=== PATIENT | female | born 1955 ===

== ENCOUNTER 2021-06-25 22:06 | Inpatient (IN) | payer OTHER ==
[~2021-06-25] VITALS: Ht 165.1 cm; Wt 106.1 kg
--- NOTE | 2021-06-25 22:35 | NUR ---
Pt brought back to room ED2B by market risk manager flores for poss sob. Pt placed on gurney and connected to bedside monitor. VSS, 123/65, 843bpm, 20rpm, 88% on 4L NC. Asisted pt to sit up and adviced to take deep breaths through her nose. A
--- NOTE | 2021-06-25 22:40 | NUR ---
EDMD at bedside to assess pt. Per EDMD placed pt on nonrebreather at high flow. pt sat improved to 93%. Pt is aaox3 with pale color and appears to have a facial twitch.
[2021-06-25] MEDS ORDERED: levoFLOXacin 750MG/D5W 150 ML IV ONE ×2 (22:45→23:35)
[2021-06-25] MEDS ORDERED: CEFTRIAXONE 1 G in IV DEXTROSE 5% 50 ML IV ONE (22:45)
--- NOTE | 2021-06-25 22:55 | NUR ---
EDMD ordered ABG and bibap. Started 20g IV on rt wrist without difficulty, pt given 40 of lasix IVP per EDMD and hung ordered abx and is currently running.
--- NOTE | 2021-06-25 23:05 | NUR ---
Pt placed on bibap and sat improved to 96%. Pt states feeling better. EKG performed and shown to EDMD result of NSR.
[2021-06-25] MEDS ORDERED: GABA-532 PO (23:10)
[2021-06-25] MEDS ORDERED: BUPR150T10 PO (23:10)
[2021-06-25] MEDS ORDERED: FERR325T28 PO (23:10)
[2021-06-25] MEDS ORDERED: ALBU8.5H8 IH (23:10)
[2021-06-25] MEDS ORDERED: LEVO100T10 PO (23:10)
[2021-06-25] MEDS ORDERED: SERT100T PO (23:10)
[2021-06-25] MEDS ORDERED: AMLO-212 PO (23:10)
[2021-06-25] MEDS ORDERED: PRAV20TA4 PO (23:10)
[2021-06-25] MEDS ORDERED: DOCU-141 PO (23:10)
[2021-06-25] MEDS ORDERED: OMEP20TA5 PO (23:10)
[2021-06-25] MEDS ORDERED: FUROSEMIDE 40 MG/4 ML VIAL IV ONE (23:15)
--- NOTE | 2021-06-25 23:20 | NUR ---
16f church catheter incerted without difficulty by maritza sup. Got immediate 15cc return of clear light yellow output. UA collected and sent by Uriel.
[2021-06-25 23:23] LABS: ABG BASE EXCESS -1.6 mmol/L; ABG HCO3 20.9 mmol/L; ABG PCO2 26.8 mmHg (35.0-45.0); ABG PH 7.509 (7.350-7.450); ABG PO2 129.3 mmHg (75.0-100.0); ABG SITE RIGHT RADIAL; ABG TOTAL HEMOGLOBIN 8.1 G/dL (12.0-16.0); COHb 0.4 % (0.5-1.5); MetHb 0.3 % (0.0-1.5); O2Hb 97.7 % (94.0-97.0)
[2021-06-25 23:25] LABS: MEAN CORPUSCULAR HEMOGLOBIN 32.2 uug (24.7-32.8); PLATELET COUNT (AUTO) 96 K/uL (179-408)
[2021-06-25] MEDS ORDERED: FUROSEMIDE 40 MG/4 ML VIAL ONE (23:31)
[2021-06-25] MEDS ORDERED: CEFTRIAXONE /D5W 50ML IVPB **ER PYXIS IV ONE (23:36)
[2021-06-25 23:45] LABS: *BILIRUBIN,URIN NEGATIVE (NEGATIVE); *BLOOD, URINE 3+ (NEGATIVE); *CLARITY,URINE CLOUDY (CLEAR); *COLOR,URINE YELLOW (YELLOW); *KETONES,URINE NEGATIVE (NEGATIVE); *UROBILINOGEN,URINE 0.2 E.U./dl (NORMAL); LEUKOCYTE ESTERASE ,URINE 3+ (NEGATIVE); NITRITE, URINE NEGATIVE (NEGATIVE); UGLUCOSE NEGATIVE (NEGATIVE)
[2021-06-26] VITALS (52 sets, daily range): BP systolic 66–152; BP diastolic 40–96
[2021-06-26 00:01] LABS: BACTERIA,URINE MANY /HPF (NONE SEEN); RBC,URINE 20-50 /HPF (0-3); SQUAMOUS EPITHELIAL CELL,UR FEW /HPF (NONE SEEN); WBC,URINE TNTC /HPF (0-3)
[2021-06-26 00:13] LABS: BILIRUBIN,DIRECT 0.5 mg/dL (0.0-0.2); BILIRUBIN,TOTAL 0.9 mg/dL (0.2-1.0); TOTAL PROTEIN, SERUM 7.5 g/dL (6.4-8.2)
[2021-06-26 00:19] LABS: CREATININE 13.4 mg/dL (0.6-1.3)
[2021-06-26] MEDS ORDERED: FUROSEMIDE 40 MG/4 ML VIAL IV ONE (00:45)
[2021-06-26] MEDS ORDERED: FUROSEMIDE 40 MG/4 ML VIAL ONE (00:48)
--- NOTE | 2021-06-26 01:13 | NUR ---
Called [facility] to page Dr. Benjamin.
--- NOTE | 2021-06-26 01:23 | NUR ---
Dr. Crawford on panel call with Dr. Benjamin.
--- NOTE | 2021-06-26 01:26 | NUR ---
Called [facility] nephrology to page Dr. Elam.
--- NOTE | 2021-06-26 01:27 | NUR ---
Dr. Crawford speaking with Dr. Elam of [facility].
--- NOTE | 2021-06-26 01:41 | NUR ---
Pt swabbed for covid using aseptic tech. specmen hand delivered to lab. [facility] called for admission due to respirator failure. Sourav will be admitting MD.
--- NOTE | 2021-06-26 02:31 | NUR ---
PATIENT PLACED ON BI/PAP WITH FULL LARGE MASK, APPROX. 23:45, WITH INITIAL SETTINGS. 15/5 , R16 , 50% ON BI/PAP. PT TENDS TO BREATH RAPID AT TIMES, IS AWAKE, AG WAS DONE ON NRB MASK PRIOR, PT STABLE, CHECK BI/PAP AT TIMES, ADJUST MASK. Lupe RUBIOP Addendum: 06/26/21 at 0233 by NASRIN BECKMAN RT Amended: Links added.
[2021-06-26] MEDS ORDERED: ONDANSETRON 4 MG/2 ML VIAL IV ONE (02:45)
[2021-06-26] MEDS ORDERED: HYDROCODONE/APAP 10-325 MG TABLET PO ONE (02:45)
[2021-06-26] MEDS ORDERED: HYDROCODONE/APAP 10-325 MG TABLET ONE (02:59)
[2021-06-26] MEDS ORDERED: ONDANSETRON 4 MG/2 ML VIAL ONE (02:59)
--- NOTE | 2021-06-26 02:59 | NUR ---
Inquired about getting a CCU room assigment for my pt bc VIOLETA wants her transported sudha. Spoke to CCU charge and was told there is no nurse to accept the pt and that most likely the pt will have to hold in ED till morning. Spoke to maritza vargas regarding VIOLETA's push to tranport pt upstairs. Maritza vargas said she is currently working on finding a room for my pt. She said a few pts will have to be moved to make room for my pt in the CCU. She said to give her another hour or so and she will have a room number for me.
[2021-06-26] MEDS ORDERED: MORPHINE SULFATE 2 MG/1 ML DISP.SYRIN IV PRN (03:45)
[2021-06-26] MEDS ORDERED: Z GUARD REMEDY PASTE 57 GM TUBE TOP PRN (03:45)
[2021-06-26] MEDS ORDERED: ONDANSETRON 4 MG/2 ML VIAL IV PRN (03:45)
[2021-06-26] MEDS ORDERED: MAGNESIUM HYDROXIDE 30 ML LIQUID UDC PO PRN (03:45)
--- NOTE | 2021-06-26 03:51 | NUR ---
Pt admitted to CCU 3, Room has to be first emptied by transfering pt to MD then terminal cleaning it, After room is all clean, then nurse said she will call me to transfe the pt.
--- NOTE | 2021-06-26 04:40 | NUR ---
Called CCU and thorough report given to CCU COSNTANTIN weathers using SBAR method. Respiratory called and bibap sent up to CCU 3 before hand. Pts chart turned over and pt transported to CCU 3 without difficulty. VSS, PE WNL, pt denies any pain, sob, dizziness, n/v. No s/sx of distress present.
--- NOTE | 2021-06-26 05:00 | NUR ---
Report received from CONSTANTIN Llamas. Patient transferred from ED and admitted to CCU-2 with a Diagnosis Acute respiratory failure via gurney accompanied by 1 staff nurse, without any incident. Patient was transferred to hospital bed via draw sheet method. A/Ox4. Able to make needs known with assistance. Left facial twitching noted. Placed on athletic monitor, SR, HR= 70bpm. NRB @15LPM, O2 sat 90%. RUC DL Deandre catheter. Body assessment done. Photos taken and placed on chart. Talbot catheter with minimal urine output. Will continue to monitor closely.
[2021-06-26] MEDS ORDERED: FERROUS SULFATE 325 MG TABEC PO SCH (05:15)
--- NOTE | 2021-06-26 05:15 | NUR ---
Placed on bipap machine with the settings of I:E 15/5, rate 16, FiO2 60% c/o RT Shan.
--- NOTE | 2021-06-26 06:00 | NUR ---
Called EPIC exchange to page doctor call or contact centre coach, Dr Benjamin x3 for HD. Awaiting for callback.
--- NOTE | 2021-06-26 06:20 | NUR ---
Called Nephro epic exchange and spoke with Dr. Elam, with regards to patient's HD. Per Dr. Ayers, ok to be stat dialysis. Notified Nursing paste mixing supervisor Shireen to call HD RN. Will endorsed to AM shift RN.
[2021-06-26] MEDS ORDERED: LEVOTHYROXINE SODIUM 100 MCG TABLET PO SCH (07:00)
--- NOTE | 2021-06-26 07:02 | NUR ---
Left patient awake, on Bipap machine as ordered, NAD, VSS. For HD today. Endorsed to next shift RN for continuity of care.
[2021-06-26] MEDS: PANTOPRAZOLE SODIUM 40 MG TABLET.DR PO SCH (07:12)
[2021-06-26] MEDS ORDERED: NOREPINEPHRINE BITARTRATE 8 MG in IV NORMAL SALINE 242 ML IV PRN (07:45)
[2021-06-26] MEDS: DOCUSATE SODIUM 100 MG CAPSULE PO SCH ×2 (08:40→16:05)
[2021-06-26] MEDS: SERTRALINE HCL 100 MG TABLET PO SCH (08:40)
[2021-06-26] MEDS: FERROUS SULFATE 325 MG TABEC PO SCH ×3 (08:40→16:05)
[2021-06-26] MEDS: DEXAMETHASONE SOD PHOSPHATE 4 MG INJ IV SCH ×2 (08:41→20:45)
[2021-06-26] MEDS ORDERED: DEXAMETHASONE SOD PHOSPHATE 4 MG INJ IV SCH (09:00)
[2021-06-26] MEDS ORDERED: AMLODIPINE 5 MG TABLET PO SCH (09:00)
[2021-06-26] MEDS ORDERED: ENOXAPARIN SODIUM 40 MG/0.4 ML DISP.SYRIN SQ SCH (09:00)
[2021-06-26] MEDS ORDERED: buPROPion SR 150 MG TABLET.SA PO SCH ×2 (09:00)
--- NOTE | 2021-06-26 09:30 | NUR ---
patient going into intermittent afib ordered EKG. Sent to Dr. Mendez, and received order for amioderone, also sent to Dr. Burgos for review.
--- NOTE | 2021-06-26 10:00 | NUR ---
[id number] orders for PICC Line insertion due to pressors.
[2021-06-26] MEDS ORDERED: AMIODARONE HCL IV 150 MG in IV DEXTROSE 5% 100 ML IV ONE (10:40)
[2021-06-26] MEDS: HEPARIN SODIUM,PORCINE 5,000 UNITS/ML VIAL SQ SCH ×2 (10:51→20:47)
[2021-06-26] MEDS: AMIODARONE HCL IV 450 MG in IV DEXTROSE 5% 250 ML IV PRN ×2 (10:53→23:03)
[2021-06-26] MEDS ORDERED: PROPOFOL 100 ML IV PRN (13:00)
--- NOTE | 2021-06-26 14:40 | NUR ---
Patient converted to Sinus rhythm.
[2021-06-26] MEDS: buPROPion XL 150 MG TAB.SR.24H PO SCH (16:43)
[2021-06-26] MEDS ORDERED: BUPR-53 PO (16:51)
--- NOTE | 2021-06-26 18:00 | NUR ---
Sister called and requested that she speak with the physician aeronautical project engineer. Epic number givenn to her. Sister is concerned that the patient may not want to be intubated and Full code. Social service consult placed.
[2021-06-26] MEDS ORDERED: LEVO125T8 PO (19:58)
[2021-06-26] MEDS ORDERED: ASPI81TA31 PO (20:03)
[2021-06-26] MEDS ORDERED: ONDA4TAB5 PO (20:06)
[2021-06-26] MEDS ORDERED: ACYC200C31 PO (20:17)
[2021-06-26] MEDS ORDERED: SODI650T PO (20:43)
[2021-06-26] MEDS ORDERED: SODI15OR6 PO (20:44)
[2021-06-26] MEDS: ACETAMINOPHEN 325 MG TABLET PO PRN (20:45)
[2021-06-26] MEDS: GABAPENTIN 300 MG CAPSULE PO SCH (20:45)
[2021-06-26] MEDS: ATORVASTATIN 10 MG TABLET PO SCH (20:45)
[2021-06-26] MEDS ORDERED: GABAPENTIN 100 MG CAPSULE PO SCH (21:00)
[2021-06-26] MEDS ORDERED: CEFTRIAXONE 1 G in IV DEXTROSE 5% 50 ML IV SCH (23:00)
[2021-06-26] MEDS ORDERED: CEFTRIAXONE 1 G VIAL IM SCH (23:00)
[2021-06-27] VITALS (83 sets, daily range): BP systolic 80–189; BP diastolic 27–168
[2021-06-27] MEDS: ACETAMINOPHEN 325 MG TABLET PO PRN (02:01)
[2021-06-27 05:18] LABS: HEMATOCRIT 26.7 % (31.2-41.9); MEAN CORPUSCULAR HEMOGLOBIN 32.1 uug (24.7-32.8); MEAN CORPUSCULAR VOLUME 93.6 fL (75.5-95.3); PLATELET COUNT (AUTO) 138 K/uL (179-408)
--- NOTE | 2021-06-27 06:45 | NUR ---
1900 Received patient awake, watching tv, follows command, facial twitching, shaking of UE. Denies pain at this time. NAD noted. On NRB mask @15LPM, O2 sat 97%. NSR on the monitor HR=78bpm. RW 20G SL and TIFFANIE PICC line with ongoing Amiodarone @0.5mg/min, Levophed @0.02mcg/kg/min. Talbot catheter with minimal urine UO noted. 1999 T=100.4, ice pack applied. Tylenol given as ordered. Will continue to monitor closely. 2099 T=102.4, cooling blanket applied. Will continue to monitor closely. 2129 Temperature trending down, T=101.5. Cool sponge bath applied. Will continue to monitor closely. 2199 Notified Nursing supercharge repair supervisor Monisha that cooling blanket is leaking and need replacement sudha. Per Monisha, nothing available at 3rd floor, sub acute and central suppluy. 0100 Cool sponge bath given several times. Linen changed. Will continue to monitor closely. 0150 Patient having SOB, labored breathing, RR=42, O2 sat=82%. Notified RT Fatoumata. 0200 Placed on bipap machine c/o RT Fatoumata. Will continue to monitor closely. 0300 HD started c/o Taye KILLIAN. Restarted Levo @0.1mcg/kg/min. 0330 Rechecked T=99.6 Cool sponge bath applied. Will continue to monitor closely. 0530 Placed on NRB mask @15LPM c/o RT Fatoumata. Per RT Fatoumata, ABG will be done on AM shift as patient kept on shaking. 0600 HD done, 2L out. VSS. Rechecked T=99.5. Cool sponge bath applied. Will continue to monitor closely. Lab called and spoke with Zeb for critical lab results. Called EPIC exchange and spoke with Precious Goddard NP, with new orders to DC heparin, lovenox 1mg/kg per pharmacy to dose Q12. Noted and carried out. 0700 Left patient awake, on NRB mask @15LPM with HFNC @40LPM, FiO2 100%, O2 sat=99%. ST on the monitor, XO=621. TIFFANIE PICC line with ongoing Amiodarone @0.5mg/min, Levophed @0.08mcg/kg/min BP=95/76. Talbot catheter with 50cc UO.Endorsed to next shift for continuity of care.
--- NOTE | 2021-06-27 06:47 | NUR ---
Seen and examined by Dr. Morrow, report given, with no new orders.
--- NOTE | 2021-06-27 07:10 | NUR ---
Received pt. AAOx4. Hemodynamically stable sbp maintained by levophed running at 0.08mcg/kg/min. Resp: on Dual setting vapoterm 40L 100% and NR 15L 100%. satuation of 82%. -88%. IV line patent. low grade fever. church to gravity. Skin with bruises. will continue to monitor.
[2021-06-27 07:50] LABS: BILIRUBIN,TOTAL 1.3 mg/dL (0.2-1.0); CREATININE 6.1 mg/dL (0.6-1.3); MAGNESIUM 1.7 mg/dL (1.8-2.4); PHOSPHOROUS 3.3 mg/dL (2.5-4.9); POTASSIUM 4.5 mmol/L (3.5-5.1); TOTAL PROTEIN, SERUM 8.1 g/dL (6.4-8.2)
--- NOTE | 2021-06-27 07:54 | NUR ---
Obstetrical Tech Dr. gage in the unit to see and examine pt. report given orders received and implemented.
[2021-06-27 07:55] LABS: ABG BASE EXCESS -4.2 mmol/L; ABG HCO3 17.9 mmol/L; ABG PCO2 23.6 mmHg (35.0-45.0); ABG PH 7.498 (7.350-7.450); ABG PO2 47.1 mmHg (75.0-100.0); ABG SITE LEFT RADIAL; ABG TOTAL HEMOGLOBIN 9.1 G/dL (12.0-16.0); COHb 0.3 % (0.5-1.5); MetHb 0.1 % (0.0-1.5); O2Hb 84.6 % (94.0-97.0); VENT MODE VAPOTHERM/ NRB
[2021-06-27 07:57] LABS: THYROID STIMULATING HORMONE 0.266 mIU/mL (0.358-3.740)
[2021-06-27] MEDS ORDERED: NOREPINEPHRINE BITARTRATE 32 MG in IV NORMAL SALINE 218 ML IV PRN (08:00)
[2021-06-27 08:06] LABS: HEPATITIS A AB, IgM Negative (Negative); HEPATITIS A AB, TOTAL Negative (Negative); HEPATITIS B SURFACE AG Negative (Negative); HEPATITIS Be ANTIGEN Negative (Negative)
[2021-06-27] MEDS: DOCUSATE SODIUM 100 MG CAPSULE PO SCH ×2 (08:27→17:00)
[2021-06-27] MEDS: ASPIRIN 81 MG TAB.CHEW PO SCH (08:27)
[2021-06-27] MEDS: DEXAMETHASONE SOD PHOSPHATE 4 MG INJ IV SCH ×2 (08:27→20:13)
[2021-06-27] MEDS: LEVOTHYROXINE SODIUM 125 MCG TABLET PO SCH (08:27)
[2021-06-27] MEDS: PANTOPRAZOLE SODIUM 40 MG TABLET.DR PO SCH (08:28)
[2021-06-27] MEDS: FERROUS SULFATE 325 MG TABEC PO SCH ×3 (08:29→17:00)
[2021-06-27] MEDS: SODIUM BICARBONATE 650 MG TABLET PO SCH ×2 (08:30→17:00)
[2021-06-27] MEDS: SERTRALINE HCL 100 MG TABLET PO SCH (08:30)
[2021-06-27] MEDS: buPROPion XL 150 MG TAB.SR.24H PO SCH (08:31)
[2021-06-27] MEDS ORDERED: HEPARIN SODIUM,PORCINE 5,000 UNITS/ML VIAL IV ONE (08:45)
[2021-06-27] MEDS: HEPARIN/D5W DRIP 500 ML IV PRN (08:45)
[2021-06-27] MEDS ORDERED: MAGNESIUM SULFATE/D5W 100 ML IV SCH (10:00)
--- NOTE | 2021-06-27 12:20 | NUR ---
Pt. with sustained desaturation down to the low 80's and tachypnea high 30's. RT at bedside and pt. placed on BIPA 20/10, Rate of 18 and 100% FIO2. saturation improved to 88%. Dr. Ly informed.
--- NOTE | 2021-06-27 12:42 | NUR ---
12-1300 meds not given pt. back on bipap and unable to take any po's.
[2021-06-27 14:36] LABS: ABG BASE EXCESS -5.1 mmol/L; ABG HCO3 18.7 mmol/L; ABG PCO2 29.5 mmHg (35.0-45.0); ABG PH 7.419 (7.350-7.450); ABG PO2 61.8 mmHg (75.0-100.0); ABG SITE LEFT RADIAL; ABG TOTAL HEMOGLOBIN 8.4 G/dL (12.0-16.0); COHb 0.1 % (0.5-1.5); MetHb 0.3 % (0.0-1.5); O2Hb 90.1 % (94.0-97.0); VENT MODE BIPAP
[2021-06-27] MEDS ORDERED: MORPHINE SULFATE 2 MG/1 ML DISP.SYRIN IV PRN (17:15)
--- NOTE | 2021-06-27 17:49 | NUR ---
Dr. Maza called to be updated on pt's current condition. also informed that due to desaturation and tachypnea pt. went back to A-fib during activities of daily leaving and attempts to readjust her face mask due to desaturation, orders received and implemented.
[2021-06-27] MEDS ORDERED: diphenhydrAMINE 50 MG/1 ML VIAL IV ONE (18:15)
[2021-06-27] MEDS: HYDROMORPHONE 1 MG/1 ML DISP.SYRIN IV PRN (18:20)
[2021-06-27] MEDS ORDERED: ACETAMINOPHEN 650 MG SUPP.RECT RC PRN (18:45)
[2021-06-27] MEDS ORDERED: AMIODARONE HCL IV 450 MG in IV DEXTROSE 5% 250 ML IV PRN (19:00)
--- NOTE | 2021-06-27 19:07 | NUR ---
Left pt. on BIPAP 20/10 rate of 18 and 100% FIO2. pt. with desaturation down to the 70's. hemodynamically remains on levophed and amiodarone drip for A-fib uncontrolled in the low 100's. Patient on heparin drip running at 1200 unit/hr. with next ptt in am on 06/28/2021. Talbot catheter with zero output. Picc to RUE patent. No skin breakdown no injury sustained. Will continue to monitor.
--- NOTE | 2021-06-27 19:30 | NUR ---
Report received. Patient admitted 06/25/2021 DX: VANDAPATRICK PNA, on isolation. AAO, on continuous BIPAP settings as follows: rate=18, PTT3=607%, I/E=20/10. O2 sats mid 80's. RR shallow, tachypneic, but patient appears calm. On Levophed, Amiodarone and Heparin drip via TIFFANIE PICC line. case monitor: Afib rate 100's-110's. Assessment done; see flow sheet for details. Addendum: 06/27/21 at 2330 by NESTOR THOMASON RN Amended: Links added.
[2021-06-27] MEDS: GABAPENTIN 300 MG CAPSULE PO SCH (20:13)
[2021-06-27] MEDS: ATORVASTATIN 10 MG TABLET PO SCH (20:13)
--- NOTE | 2021-06-27 20:35 | NUR ---
Patient converted to SR rate 80's. BPs stable with Levophed drip at 0.08 mcg/kg/min. Patient's sister Brionna called; updated of patient's condition.
[2021-06-27] MEDS: CEFTRIAXONE 2 G in IV DEXTROSE 5% 100 ML IV SCH (20:44)
[2021-06-27] MEDS ORDERED: levoFLOXacin 250MG /D5W 50 ML IV SCH ×2 (21:00→23:00)
--- NOTE | 2021-06-27 21:00 | NUR ---
Patient's friend Brianda called; updated of condition.
--- NOTE | 2021-06-27 23:30 | NUR ---
Levophed drip turned off; BPs stabilizing. Will continue to monitor closely. PM care done; skin care provided. RT Ham at bedside. Patient desaturates easily when BIPAP is removed for water intake and oral care. Patient advised; reassured. Addendum: 06/28/21 at 0119 by NESTOR THOMASON RN Amended: Links added. Addendum: 06/28/21 at 0119 by NESTOR THOMASON RN Amended: Links added. Addendum: 06/28/21 at 0120 by NESTOR THOMASON RN Amended: Links added. Addendum: 06/28/21 at 0120 by NESTOR THOMASON RN Amended: Links added. Addendum: 06/28/21 at 0120 by NESTOR THOMASON RN Amended: Links added. Addendum: 06/28/21 at 0120 by NESTOR THOMASON RN Amended: Links added. Addendum: 06/28/21 at 0120 by NESTOR THOMASON RN Amended: Links added. Addendum: 06/28/21 at 0121 by NESTOR THOMASON RN Amended: Links added. Addendum: 06/28/21 at 0121 by NESTOR THOMASON RN Amended: Links added. Addendum: 06/28/21 at 0121 by NESTOR THOMASON RN Amended: Links added. Addendum: 06/28/21 at 0122 by NESTOR THOMASON RN Amended: Links added. Addendum: 06/28/21 at 0122 by NESTOR THOMASON RN Amended: Links added.
[2021-06-28] VITALS (93 sets, daily range): BP systolic 78–169; BP diastolic 44–97
[2021-06-28] MEDS: IV NORMAL SALINE 250 ML IV PRN (01:10)
[2021-06-28] MEDS: ACETAMINOPHEN 325 MG TABLET PO PRN ×2 (02:21→19:36)
[2021-06-28] MEDS: HEPARIN/D5W DRIP 500 ML IV PRN (03:31)
--- NOTE | 2021-06-28 04:00 | NUR ---
Am care done; patient desaturates easily with turning. Monitored closely.
[2021-06-28 05:55] LABS: MAGNESIUM 2.2 mg/dL (1.8-2.4); PHOSPHOROUS 6.8 mg/dL (2.5-4.9); POTASSIUM 4.7 mmol/L (3.5-5.1)
[2021-06-28] MEDS: LEVOTHYROXINE SODIUM 125 MCG TABLET PO SCH (06:01)
[2021-06-28] MEDS: PANTOPRAZOLE SODIUM 40 MG TABLET.DR PO SCH (06:01)
[2021-06-28 06:39] LABS: CREATININE 9.1 mg/dL (0.6-1.3)
--- NOTE | 2021-06-28 06:46 | NUR ---
Seen by Dr. Morrow; aware of patient's condition. Spoke to patient re: dialysis today. Patient desaturates very easily with minimal care such as skin care, turning and oral care. BIPAP current settings: 20/10, VGH6=592% and rate=18. Still on Levophed drip at 0.03 mcg/kg/min, Amiodarone drip at 0.5 mg/min and Heparin drip at 1200units/H. This am PTT=50.3 seconds.
--- NOTE | 2021-06-28 07:00 | NUR ---
Receive pt. AAox4. Neuro-tayolr stable able to communicate despite having BIPAP mask on . Hemodynamically stable on Amiodarone drip running at 0.5mck/min. levophed running at 0.03mcg/kg/min. Patient Remains on BIPAP 20/10 Rate of 18, FIO2 100%. on Sinus rhythm. Picc line patent.
[2021-06-28] MEDS: ASPIRIN 81 MG TAB.CHEW PO SCH (08:33)
[2021-06-28] MEDS: DOCUSATE SODIUM 100 MG CAPSULE PO SCH ×2 (08:33→17:54)
[2021-06-28] MEDS: DEXAMETHASONE SOD PHOSPHATE 4 MG INJ IV SCH ×2 (08:36→20:47)
[2021-06-28] MEDS: buPROPion XL 150 MG TAB.SR.24H PO SCH (08:37)
[2021-06-28] MEDS: SODIUM BICARBONATE 650 MG TABLET PO SCH ×2 (08:37→17:55)
[2021-06-28] MEDS: SERTRALINE HCL 100 MG TABLET PO SCH (08:37)
[2021-06-28] MEDS: FERROUS SULFATE 325 MG TABEC PO SCH ×3 (08:40→17:54)
[2021-06-28 08:48] LABS: ABG BASE EXCESS -2.6 mmol/L; ABG HCO3 21.1 mmol/L; ABG PCO2 31.5 mmHg (35.0-45.0); ABG PH 7.443 (7.350-7.450); ABG SITE RIGHT BRACHIAL; ABG TOTAL HEMOGLOBIN 8.2 G/dL (12.0-16.0); COHb 0.3 % (0.5-1.5); MetHb 0.2 % (0.0-1.5); O2Hb 91.2 % (94.0-97.0); VENT MODE BIPAP
[2021-06-28 09:47] LABS: HEMATOCRIT 21.6 % (31.2-41.9); PLATELET COUNT (AUTO) 128 K/uL (179-408)
--- NOTE | 2021-06-28 11:15 | NUR ---
Clinical Social Work Note SW consult was requested to help patients sister with discussing code status. Patient is a 65 female and SW did not meet with patient. ALEXANDER spoke with patients sister Yaquelin Fuentes ([phone]) who stated that she wanted to discuss her sisters code status with patients doctor. Patients sister stated that she wanted more information about her sisters condition in order to make a decision about code status. ALEXANDER spoke with RN, Eloisa, to inform her about patients sisters request and asked if she can advise MD to call patients sister.
--- NOTE | 2021-06-28 11:29 | NUR ---
Patient seen by title attorney Dr. Ly report given see order hx. well aware that pt. is not stable to be taken down for CTA. and agreeable to have procedure done when pt. stable enough.
--- NOTE | 2021-06-28 11:36 | NUR ---
A call from ALEXANDER George and Mala was advice to notify attending and give him Ms. Rocha cell phone number for update and discuss code status. . notified,.
--- NOTE | 2021-06-28 11:40 | NUR ---
Patient seen by pot sander Dr. Burgos and orders to dcd amiodarone as pt. will take po amiodarone. and also orders to dcd the heparin drip.
--- NOTE | 2021-06-28 12:00 | NUR ---
Attending Dr. Gray Mathias in to see and examine pt. report given.
--- NOTE | 2021-06-28 15:15 | NUR ---
Pt. started on HD tolerating at this time.
[2021-06-28 16:38] LABS: LYMPHOCYTES % (MANUAL) 20 % (20-40); MONOCYTES % (MANUAL) 10 % (2-10); NEUTROPHILS % (MANUAL) 70 % (42-75)
--- NOTE | 2021-06-28 18:30 | NUR ---
Hemodialysis stopped as ordered by Dr. Morrow to crna. due to increasing heart rate A-fib in the 130's max and at this time been sustained. report of a total of 1.1 liter removed.
--- NOTE | 2021-06-28 18:45 | NUR ---
Lead Mechanic Dr. Burgos notified of events and that pt. has sustained and back in the A-fib uncontrolled mode. Awaiting call back.
[2021-06-28] MEDS ORDERED: AMIODARONE HCL IV 450 MG in IV DEXTROSE 5% 250 ML IV PRN (19:30)
--- NOTE | 2021-06-28 19:30 | NUR ---
Received patient tachycardic, tachypneic, mildly agitated. Admitted for COVID PNA 06/25/2021. RT at bedside. On BIPAP, settings: rate=18, YMC5=017% I/E= 20/10. Patient advised and reassured appropriately. Iceh=912.1 axillary. Medicated with Tylenol po and Dilaudid IV. Cooling measures initiated. Turned and repositioned for comfort. HOB elevated above 30 degrees. Addendum: 06/29/21 at 0100 by NESTOR THOMASON RN Amended: Links added. Addendum: 06/29/21 at 0103 by NESTOR THOMASON RN Amended: Links added. Addendum: 06/29/21 at 0106 by NESTOR THOMASON RN Amended: Links added. Addendum: 06/29/21 at 0107 by NESTOR THOMASON RN Amended: Links added. Addendum: 06/29/21 at 0107 by NESTOR THOMASON RN Amended: Links added. Addendum: 06/29/21 at 0107 by NESTOR THOMASON RN Amended: Links added. Addendum: 06/29/21 at 0107 by NESTOR THOMASON RN Amended: Links added. Addendum: 06/29/21 at 0109 by NESTOR THOMASON RN Amended: Links added. Addendum: 06/29/21 at 0109 by NESTOR THOMASON RN Amended: Links added. Addendum: 06/29/21 at 0109 by NESTOR THOMASON RN Amended: Links added. Addendum: 06/29/21 at 0109 by NESTOR THOMASON RN Amended: Links added. Addendum: 06/29/21 at 0109 by NESTOR THOMASON RN Amended: Links added. Addendum: 06/29/21 at 0109 by NESTOR THOMASON RN Amended: Links added. Addendum: 06/29/21 at 0110 by NESTOR THOMASON RN Amended: Links added. Addendum: 06/29/21 at 0110 by NESTOR THOMASON RN Amended: Links added. Addendum: 06/29/21 at 0110 by NESTOR THOMASON RN Amended: Links added. Addendum: 06/29/21 at 0110 by NESTOR THOMASON RN Amended: Links added. Addendum: 06/29/21 at 0110 by NESTOR THOMASON RN Amended: Links added. Addendum: 06/29/21 at 0111 by NESTOR THOMASON RN Amended: Links added.
[2021-06-28] MEDS: HYDROMORPHONE 1 MG/1 ML DISP.SYRIN IV PRN (19:35)
--- NOTE | 2021-06-28 19:59 | NUR ---
Amiodarone drip started at 0.5 mg/min. campus monitor: Afib rate 100's-130's. Addendum: 06/29/21 at 0103 by NSETOR THOMASON RN Amended: Links added. Addendum: 06/29/21 at 0106 by NESTOR THOMASON RN Amended: Links added. Addendum: 06/29/21 at 0107 by NESTOR THOMASON RN Amended: Links added. Addendum: 06/29/21 at 0107 by NESTOR THOMASON RN Amended: Links added. Addendum: 06/29/21 at 0107 by NESTOR THOMASON RN Amended: Links added. Addendum: 06/29/21 at 0107 by NESTOR THOMASON RN Amended: Links added. Addendum: 06/29/21 at 0109 by NESTOR THOMASON RN Amended: Links added. Addendum: 06/29/21 at 0109 by NESTOR THOMASON RN Amended: Links added. Addendum: 06/29/21 at 0109 by NESTOR THOMASON RN Amended: Joon added. Addendum: 06/29/21 at 0109 by NESTOR THOMASON RN Amended: Joon added. Addendum: 06/29/21 at 0109 by NESTOR THOMASON RN Amended: Links added. Addendum: 06/29/21 at 0109 by NESTOR THOMASON RN Amended: Links added. Addendum: 06/29/21 at 0110 by NESTOR THOMASON RN Amended: Links added. Addendum: 06/29/21 at 0110 by NESTOR THOMASON RN Amended: Links added. Addendum: 06/29/21 at 0110 by NESTOR THOMASON RN Amended: Links added. Addendum: 06/29/21 at 0110 by NESTOR THOMASON RN Amended: Links added. Addendum: 06/29/21 at 0110 by NESTOR THOMASON RN Amended: Links added. Addendum: 06/29/21 at 0111 by NESTOR THOMASON RN Amended: Links added.
[2021-06-28] MEDS: GABAPENTIN 300 MG CAPSULE PO SCH (20:47)
[2021-06-28] MEDS: CEFTRIAXONE 2 G in IV DEXTROSE 5% 100 ML IV SCH (20:48)
[2021-06-28] MEDS: NOREPINEPHRINE BITARTRATE 8 MG in IV NORMAL SALINE 242 ML IV PRN (20:53)
--- NOTE | 2021-06-28 20:53 | NUR ---
Dilaudid IV effective. Levophed drip started for BP support. Will monitor BPs closely.
[2021-06-28] MEDS ORDERED: APIXABAN 5 MG TABLET PO SCH (21:00)
[2021-06-28] MEDS ORDERED: AMIODARONE HCL 200 MG TABLET PO SCH (21:00)
[2021-06-28] MEDS: ATORVASTATIN 10 MG TABLET PO SCH (21:10)
[2021-06-29] VITALS (44 sets, daily range): BP systolic 92–129; BP diastolic 50–88
--- NOTE | 2021-06-29 01:14 | NUR ---
Converted to SR rate 70's. SBPs above 90 with Levophed drip at 0.02 mcg/kg/min.
[2021-06-29] MEDS: IV NORMAL SALINE 250 ML IV PRN (01:37)
--- NOTE | 2021-06-29 02:00 | NUR ---
Levophed drip turned off. SBPs above 90. Will monitor closely. Addendum: 06/29/21 at 0658 by NESTOR THOMASON RN Amended: Links added. Addendum: 06/29/21 at 0702 by NESTOR THOMASON RN Amended: Links added.
[2021-06-29] MEDS: HYDROMORPHONE 1 MG/1 ML DISP.SYRIN IV PRN (02:58)
[2021-06-29 05:55] LABS: CREATININE 7.4 mg/dL (0.6-1.3); MAGNESIUM 2.3 mg/dL (1.8-2.4); PHOSPHOROUS 6.5 mg/dL (2.5-4.9); POTASSIUM 4.4 mmol/L (3.5-5.1)
[2021-06-29] MEDS: PANTOPRAZOLE SODIUM 40 MG TABLET.DR PO SCH (06:01)
[2021-06-29] MEDS: LEVOTHYROXINE SODIUM 125 MCG TABLET PO SCH (06:01)
[2021-06-29 06:09] LABS: MEAN CORPUSCULAR HEMOGLOBIN 31.6 uug (24.7-32.8); MEAN CORPUSCULAR VOLUME 92.3 fL (75.5-95.3); PLATELET COUNT (AUTO) 149 K/uL (179-408)
[2021-06-29 06:15] LABS: HEMATOCRIT 20.8 % (31.2-41.9)
[2021-06-29 06:16] LABS: NEUTROPHILS % (MANUAL) 0 % (42-75)
--- NOTE | 2021-06-29 07:02 | NUR ---
Remains on BIPAP with settings: rate=18, ZLC3=455%, I/E=20/10. O2 saturations 80's-high 90's. Still desaturates easily down to 70's during care and repositioning. hall monitor: SR rate 60's-70's. Amiodarone drip at 0.5 mg/min. BPs stable; off Levophed drip since 020. Anuric. No dialysis order for today. Call placed to [facility] [employer] re: am CBC results. Awaiting for call back from Santiago Goddard NP. Addendum: 06/29/21 at 0702 by NESTOR THOMASON RN Amended: Links added.
--- NOTE | 2021-06-29 07:15 | NUR ---
Received report from retail shift supervisor nurse. Patient in bed on bipap fidgeting with mask. Hemodynamically stable, in sinus rhythm. Patient requesting removal of mask and wants to drink cold water. Alarm checked for accuracy, bed in low position, side rails upx2, and bed alarm on. Call light in reach.
[2021-06-29 07:36] LABS: ABG BASE EXCESS -1.6 mmol/L; ABG PCO2 38.1 mmHg (35.0-45.0); ABG PH 7.399 (7.350-7.450); ABG PO2 63.2 mmHg (75.0-100.0); ABG SITE LEFT RADIAL; ABG TOTAL HEMOGLOBIN 9.9 G/dL (12.0-16.0); COHb 0.3 % (0.5-1.5); MetHb 0.3 % (0.0-1.5); O2Hb 90.1 % (94.0-97.0); VENT MODE BIPAP
--- NOTE | 2021-06-29 08:00 | NUR ---
[facility]iology [facility] called to notify this property underwriter that the patient may have a Right apical pneumothorax, and right neck soft tissue gas. Recommended to take another radiographic image. Notified Dr. Ly, no new orders at this time.
[2021-06-29] MEDS: AMIODARONE HCL 200 MG TABLET PO SCH ×2 (08:25→20:46)
[2021-06-29] MEDS: DEXAMETHASONE SOD PHOSPHATE 4 MG INJ IV SCH ×2 (08:25→20:45)
[2021-06-29] MEDS: DOCUSATE SODIUM 100 MG CAPSULE PO SCH ×2 (08:25→17:25)
[2021-06-29] MEDS: FERROUS SULFATE 325 MG TABEC PO SCH ×2 (08:26→12:03)
[2021-06-29] MEDS: SERTRALINE HCL 100 MG TABLET PO SCH (08:26)
[2021-06-29] MEDS: buPROPion XL 150 MG TAB.SR.24H PO SCH (08:26)
[2021-06-29] MEDS: SODIUM BICARBONATE 650 MG TABLET PO SCH ×2 (08:27→17:25)
--- NOTE | 2021-06-29 12:00 | NUR ---
Dr. Mathias in the unit to see patient. Discussed in detail patients need to see oncology, and poor PO intake and requested Nepro for supplementation. Discussed possible NG tube if she continues to have poor PO intake. reported to hold off for now and monitor intake. Talbot catheter to be removed due to higher risk of infection and no urine output.
--- NOTE | 2021-06-29 12:51 | NUR ---
Patient notified this writer producer that she is having some difficulty in breathing and would like to go on bipap for a while.
[2021-06-29] MEDS ORDERED: VANCOMYCIN IV 1,500 MG in IV DEXTROSE 5% 500 ML IV ONE (13:00)
[2021-06-29] MEDS ORDERED: FILGRASTIM 480 MCG/1.6 ML VIAL SUBCUT SCH (14:15)
[2021-06-29 14:34] LABS: IRON, SERUM 70 ug/dL (50-175)
[2021-06-29] MEDS ORDERED: TBO-FILGRASTIM 480 MCG/0.8 ML SYRINGE SQ ONE (15:15)
[2021-06-29 15:36] LABS: *RHEUMATOID FACTOR SCREEN NEGATIVE (NEGATIVE)
[2021-06-29] MEDS: NEPRO (VANILLA) 237 ML CAN PO SCH (17:27)
[2021-06-29] MEDS: GABAPENTIN 300 MG CAPSULE PO SCH (20:45)
[2021-06-29] MEDS: CEFTRIAXONE 2 G in IV DEXTROSE 5% 100 ML IV SCH (20:46)
[2021-06-29] MEDS: ATORVASTATIN 10 MG TABLET PO SCH (20:47)
--- NOTE | 2021-06-29 21:15 | NUR ---
Received report. Patient is awake, watching tv, denies pain at this time. No signs of acute distress noted. On NRB mask @15LPM, HFNC @40LPM FiO 100%, O2 sat 81%. NSR on the monitor, 87. TIFFANIE PICC line with ongoing NS @TKO. Bed at lowest position, bed alarm on, siderailsx2. Call light within reach. Will continue to monitor closely.
--- NOTE | 2021-06-29 22:00 | NUR ---
Patient had a large BM soft in consistency and brown-greenish in color. Cleaned patient and linen changed.
[2021-06-30] VITALS (30 sets, daily range): BP systolic 86–130; BP diastolic 38–88
--- NOTE | 2021-06-30 03:03 | NUR ---
PATIENT ON CONT HIGH FLOW 40L, @ 100% WITH NRB MASK @ 100%, HARD TO GET WAVE FORM , ON PULSE OXY , SAT 79-85% ,CHECK HIGH FLOW PERIODICALLY, REPLACE H20 ON HIGH FLOW .Lupe BECKMAN RCP Addendum: 06/30/21 at 0305 by NASRIN BECKMAN RT Amended: Links added.
[2021-06-30 05:20] LABS: MEAN CORPUSCULAR HEMOGLOBIN 31.9 uug (24.7-32.8); MEAN CORPUSCULAR VOLUME 93.7 fL (75.5-95.3); PLATELET COUNT (AUTO) 151 K/uL (179-408)
[2021-06-30 05:33] LABS: MAGNESIUM 1.9 mg/dL (1.8-2.4); PHOSPHOROUS 5.5 mg/dL (2.5-4.9)
[2021-06-30 05:44] LABS: CREATININE 8.9 mg/dL (0.6-1.3)
[2021-06-30] MEDS: IV NORMAL SALINE 250 ML IV PRN (05:45)
[2021-06-30] MEDS: LEVOTHYROXINE SODIUM 125 MCG TABLET PO SCH (06:02)
[2021-06-30] MEDS: PANTOPRAZOLE SODIUM 40 MG TABLET.DR PO SCH (06:02)
[2021-06-30 06:06] LABS: HEPATITIS B SURFACE AG Negative (Negative)
[2021-06-30 06:29] LABS: BAND % (MANUAL) 1 % (0-10); LYMPHOCYTES % (MANUAL) 13 % (20-40); MONOCYTES % (MANUAL) 7 % (2-10); NEUTROPHILS % (MANUAL) 79 % (42-75)
[2021-06-30] MEDS ORDERED: VANCOMYCIN IV 500 MG in IV DEXTROSE 5% 100 ML IV PRN (06:30)
--- NOTE | 2021-06-30 06:32 | NUR ---
Left patient asleep on NRB mask @15LPM, HFNC @30LPM, FiO2 100%, O2 sat 85%. NAD. NSR on the monitor, HR 91. TIFFANIE PICC with ongoing NS @TKO. VSS.
--- NOTE | 2021-06-30 07:00 | NUR ---
Received report from shift production supervisor nurse, patient in bed on side lying position. Saturation 76%. Patient on non rebreather and High flow oxygen, Sinus rhythm on the monitor, hemodynamically stable. Air mattress inflated, bed in low position, side rails up x 2. Alarms checked for accuracy.
[2021-06-30 07:38] LABS: ABG BASE EXCESS -3.4 mmol/L; ABG HCO3 19.9 mmol/L; ABG PCO2 28.6 mmHg (35.0-45.0); ABG PO2 45.7 mmHg (75.0-100.0); ABG SITE RIGHT RADIAL; ABG TOTAL HEMOGLOBIN 7.7 G/dL (12.0-16.0); COHb 0.2 % (0.5-1.5); MetHb 0.3 % (0.0-1.5); O2Hb 81.7 % (94.0-97.0); VENT MODE HIGH FLOW + NRB
[2021-06-30] MEDS: DOCUSATE SODIUM 100 MG CAPSULE PO SCH ×2 (08:03→16:46)
[2021-06-30] MEDS: AMIODARONE HCL 200 MG TABLET PO SCH (08:04)
[2021-06-30] MEDS: SERTRALINE HCL 100 MG TABLET PO SCH (08:04)
[2021-06-30] MEDS: DEXAMETHASONE SOD PHOSPHATE 4 MG INJ IV SCH ×2 (08:04→22:21)
[2021-06-30] MEDS: buPROPion XL 150 MG TAB.SR.24H PO SCH (08:05)
[2021-06-30 08:06] LABS: *IMMUNOGLOBULIN G, SERUM 985 mg/dL (586-1602); A/G RATIO 0.6 (0.7-1.7); ALBUMIN 1.8 g/dL (2.9-4.4); ALPHA-1-GLOBULIN 0.5 g/dL (0.0-0.4); BETA GLOBULIN 0.7 g/dL (0.7-1.3); GAMMA GLOBULIN 0.9 g/dL (0.4-1.8); GLOBULIN, TOTAL 3.1 g/dL (2.2-3.9); IMMUNOGLOBULIN A, SERUM 12 mg/dL (87-352); IMMUNOGLOBULIN M, SERUM 11 mg/dL (26-217); M-SPIKE 0.8 g/dL (Not Observed)
[2021-06-30] MEDS: SODIUM BICARBONATE 650 MG TABLET PO SCH ×2 (08:06→16:47)
[2021-06-30] MEDS: NEPRO (VANILLA) 237 ML CAN PO SCH ×2 (08:07→16:46)
--- NOTE | 2021-06-30 09:00 | NUR ---
Patient reports feeling very short of breath and confused and continues to take off NRB mask. Saturation is 76% and drops to 60's when she takes it off. Offered to place Bipap back on and patient agreed.
[2021-06-30 09:07] LABS: *ANTI-SCLERODERMA-70 AB <0.2 AI (0.0-0.9); *SJOGREN'S ANTI-SS-A <0.2 AI (0.0-0.9); *SJOGREN'S ANTI-SS-B <0.2 AI (0.0-0.9); *SMITH ANTIBODIES <0.2 AI (0.0-0.9); ANTI-DNA(DS) AB, QN <1 IU/mL (0-9)
[2021-06-30 12:44] LABS: *OCCULT BLOOD STOOL NEGATIVE (NEGATIVE)
[2021-06-30] MEDS: APIXABAN 5 MG TABLET PO SCH ×2 (13:00→22:23)
[2021-06-30] MEDS: TBO-FILGRASTIM 480 MCG/0.8 ML SYRINGE SQ SCH (15:36)
--- NOTE | 2021-06-30 19:30 | NUR ---
Report received. Patient tachypneic, but awake alert, mildly restless, fidgety. On continuous BIPAP with settings rate=18, FOV6=740% I/E=20/10. O2 sats 86-88%. Medicated with Dilaudid IV. feller hand at bedside.
[2021-06-30] MEDS: HYDROMORPHONE 1 MG/1 ML DISP.SYRIN IV PRN (19:37)
--- NOTE | 2021-06-30 20:00 | NUR ---
Dialysis started by Charity KILLIAN. Patient watching TV but remains tachypneic. Will continue to monitor for now.
--- NOTE | 2021-06-30 20:25 | NUR ---
1 unit of PRBCs started and given via dialysis. BP stable.
--- NOTE | 2021-06-30 22:00 | NUR ---
monitoring and evaluation advisor: Afib rate 100's-110's. concrete curer made aware. concrete curer Charity spoke with Dr. Morrow. Dialysis completed as per oncology pharmacist.
--- NOTE | 2021-06-30 22:15 | NUR ---
Patient remains in Afib. Spoke to Dr. Anne; orders for Amiodarone IV received.
[2021-06-30] MEDS: GABAPENTIN 300 MG CAPSULE PO SCH (22:22)
[2021-06-30] MEDS: ATORVASTATIN 10 MG TABLET PO SCH (22:24)
[2021-06-30] MEDS: CEFTRIAXONE 2 G in IV DEXTROSE 5% 100 ML IV SCH (22:29)
[2021-06-30] MEDS ORDERED: AMIODARONE HCL IV 150 MG in IV DEXTROSE 5% 100 ML IV ONE (22:30)
[2021-06-30] MEDS ORDERED: AMIODARONE HCL 150 MG/3 ML VIAL IV ONE (22:41)
--- NOTE | 2021-06-30 22:43 | NUR ---
Amiodarone 150 mg IV bolus given; then drip started at 1 mg/H as per protocol.
[2021-06-30] MEDS: ACETAMINOPHEN 325 MG TABLET PO PRN (22:50)
[2021-06-30] MEDS: AMIODARONE HCL IV 450 MG in IV DEXTROSE 5% 250 ML IV PRN (22:55)
[2021-07-01] VITALS (40 sets, daily range): BP systolic 62–147; BP diastolic 49–93
--- NOTE | 2021-07-01 | NUR ---
Converted to SR rate 90's. BPs stable. Amiodarone drip remains at 1mg/min. via TIFFANIE PICC line. Asking for some water. Desaturates easily when taken off BIPAP to drink. Plan of care discussed including possible intubation if she continues to be tachypneic. Patient claims "not tonight". Patient wants to talk to MD in am re: intubation. Offered if she wants to talk to her sister Brionna; patient stated in the morning.
[2021-07-01] MEDS: HYDROMORPHONE 1 MG/1 ML DISP.SYRIN IV PRN ×2 (00:56→15:06)
--- NOTE | 2021-07-01 00:56 | NUR ---
Vent kept on alarming; RTs called. Vent changed with same BIPAP settings. Monitored closely.
[2021-07-01] MEDS: IV NORMAL SALINE 250 ML IV PRN (03:04)
--- NOTE | 2021-07-01 06:30 | NUR ---
Seen by Dr. Morrow. Patient awake and able to make needs known. Advised of possible intubation and plan of care. O2 sats mid 80's-low 90's. monitor tech: SR rate 70's. Amiodarone drip at 0.5 mg/min. BPs stable.
[2021-07-01 07:10] LABS: BILIRUBIN,TOTAL 0.6 mg/dL (0.2-1.0); POTASSIUM 4.5 mmol/L (3.5-5.1); TOTAL PROTEIN, SERUM 7.2 g/dL (6.4-8.2)
[2021-07-01 07:16] LABS: MAGNESIUM 2.1 mg/dL (1.8-2.4); PHOSPHOROUS 4.8 mg/dL (2.5-4.9); POTASSIUM 4.5 mmol/L (3.5-5.1); URIC ACID 4.4 mg/dL (2.6-6.0)
[2021-07-01] MEDS: LEVOTHYROXINE SODIUM 125 MCG TABLET PO SCH (07:48)
[2021-07-01] MEDS: PANTOPRAZOLE SODIUM 40 MG TABLET.DR PO SCH (07:48)
[2021-07-01] MEDS: DOCUSATE SODIUM 100 MG CAPSULE PO SCH ×2 (08:10→17:00)
[2021-07-01] MEDS: DEXAMETHASONE SOD PHOSPHATE 4 MG INJ IV SCH ×2 (08:10→21:50)
[2021-07-01] MEDS: buPROPion XL 150 MG TAB.SR.24H PO SCH (08:11)
[2021-07-01] MEDS: SERTRALINE HCL 100 MG TABLET PO SCH (08:11)
[2021-07-01] MEDS: NEPRO (VANILLA) 237 ML CAN PO SCH ×2 (08:11→17:00)
[2021-07-01] MEDS: SODIUM BICARBONATE 650 MG TABLET PO SCH ×2 (08:11→17:00)
[2021-07-01] MEDS: APIXABAN 5 MG TABLET PO SCH ×2 (08:11→21:00)
[2021-07-01] MEDS: AMIODARONE HCL IV 450 MG in IV DEXTROSE 5% 250 ML IV PRN (08:56)
[2021-07-01] MEDS ORDERED: AMPICILLIN IV 1 G in IV NORMAL SALINE 50 ML IV SCH (09:15)
[2021-07-01 09:42] LABS: ABG BASE EXCESS -3.6 mmol/L; ABG HCO3 20.7 mmol/L; ABG PCO2 34.5 mmHg (35.0-45.0); ABG PH 7.396 (7.350-7.450); ABG SITE RIGHT RADIAL; ABG TOTAL HEMOGLOBIN 9.2 G/dL (12.0-16.0); COHb 0.3 % (0.5-1.5); MetHb 0.3 % (0.0-1.5); O2Hb 88.8 % (94.0-97.0); VENT MODE BIPAP20/10
--- NOTE | 2021-07-01 10:31 | NUR ---
Patient converted to sinus rhythm.
[2021-07-01] MEDS ORDERED: CEFTRIAXONE 2 G in IV DEXTROSE 5% 100 ML IV SCH (11:00)
[2021-07-01] MEDS ORDERED: QUETIAPINE FUMARATE 25 MG TABLET PO ONE (14:30)
[2021-07-01] MEDS: TBO-FILGRASTIM 480 MCG/0.8 ML SYRINGE SQ SCH (14:36)
--- NOTE | 2021-07-01 15:00 | NUR ---
Patient becoming increasingly anxious, will give seroquel as ordered.
--- NOTE | 2021-07-01 15:15 | NUR ---
Patient is unable to swallow pills due to tachypnea, unsafe. Gave dilaudid to help patient with trouble breathing, unsuccessful with calming patient. Contacted Dr. Ly and Rah to inform them that the patient is increasingly short of breath and unable to maintain oxygen saturation above 60%. ER doctor notified to intubate patient.
[2021-07-01 15:21] LABS: HEMATOCRIT 26.3 % (31.2-41.9); MEAN CORPUSCULAR VOLUME 93.7 fL (75.5-95.3); PLATELET COUNT (AUTO) 169 K/uL (179-408)
[2021-07-01] MEDS: PROPOFOL 100 ML IV PRN ×2 (15:32→23:16)
--- NOTE | 2021-07-01 15:40 | NUR ---
Patient intubated without difficulty utilizing etomidate 20 and rocuronium 100. CXR ordered and OG tube placed.
[2021-07-01 16:14] LABS: ABG BASE EXCESS -9.1 mmol/L; ABG HCO3 20.3 mmol/L; ABG PCO2 60.7 mmHg (35.0-45.0); ABG PH 7.142 (7.350-7.450); ABG SITE LEFT RADIAL; ABG TOTAL HEMOGLOBIN 12.3 G/dL (12.0-16.0); COHb 0.3 % (0.5-1.5); MetHb 0.3 % (0.0-1.5); O2Hb 49.5 % (94.0-97.0); VENT MODE VENT - A/C20; VT, ABG 600 mL
--- NOTE | 2021-07-01 16:18 | NUR ---
Notified Dr. Ly of patients ABG's post intubation, and received orders for vent changes. Patient saturation is still extremely low.
[2021-07-01] MEDS ORDERED: ROCURONIUM BROMIDE 50 MG/5 ML VIAL ONE ×2 (16:30)
[2021-07-01] MEDS ORDERED: ETOMIDATE 20 MG/10 ML VIAL ONE ×2 (16:30)
[2021-07-01] MEDS ORDERED: SODIUM BICARBONATE 8.4% 50 MEQ/50 ML DISP.SYRIN IV ONE (16:45)
--- NOTE | 2021-07-01 17:00 | NUR ---
Patient will need to be started on Neosynephrine as ordered by Dr. Monreal.
[2021-07-01] MEDS ORDERED: PHENYLEPHRINE IV 50 MG in IV NORMAL SALINE 245 ML IV PRN (17:30)
[2021-07-01] MEDS: ACETAMINOPHEN 325 MG TABLET PO PRN (18:03)
--- NOTE | 2021-07-01 19:00 | NUR ---
Patients BP is not increasing with 0.1mcg increments every 15 minutes, Received orders to start patient on 3mcg/kg/min and restart levophed if necessary.
--- NOTE | 2021-07-01 19:10 | NUR ---
received patient obtunded , amiodarone at 0.5 mg , neosynephrine was bumped to 3 mcg , due to low blood pressure , propofol at 10 mcg , ogt , clamped , cool to touch , bp 74 / 53 hr 90 , oxygen saturation 52 % , vent setting of ac 25 tv 600 p 15 fio2 100 fio2% .
--- NOTE | 2021-07-01 19:10 | NUR ---
r chest perma catheter intact
[2021-07-01] MEDS ORDERED: NOREPINEPHRINE BITARTRATE 4 MG/4 ML VIAL IV ONE ×3 (20:19→23:37)
[2021-07-01] MEDS: NOREPINEPHRINE BITARTRATE 8 MG in IV NORMAL SALINE 242 ML IV PRN (20:24)
--- NOTE | 2021-07-01 20:24 | NUR ---
levophed is started 1 mcg ,
[2021-07-01] MEDS: PHENYLEPHRINE IV 50 MG in IV NORMAL SALINE 245 ML IV PRN (20:56)
[2021-07-01] MEDS ORDERED: VANCOMYCIN IV 500 MG in IV DEXTROSE 5% 100 ML IV ONE (21:00)
[2021-07-01] MEDS: ATORVASTATIN 10 MG TABLET PO SCH (21:00)
[2021-07-01] MEDS: GABAPENTIN 300 MG CAPSULE PO SCH (21:00)
[2021-07-01] MEDS ORDERED: AMIODARONE HCL 200 MG TABLET PO SCH (21:00)
--- NOTE | 2021-07-01 21:00 | NUR ---
dialysis nurse left , machine not working
--- NOTE | 2021-07-01 21:00 | NUR ---
henna id , is here to see patient updates given on patient;s condition
[2021-07-01] MEDS ORDERED: PHENYLEPHRINE 10 MG/1 ML VIAL ONE ×2 (21:01→23:22)
--- NOTE | 2021-07-01 21:28 | NUR ---
dialysis is here to do dialysis
[2021-07-01] MEDS ORDERED: VASOPRESSIN 40 UNIT in IV NORMAL SALINE 40 ML IV PRN (22:30)
[2021-07-01] MEDS ORDERED: HYDROCORTISONE SOD SUCCINATE 100 MG/2 ML VIAL IV SCH (22:30)
[2021-07-01] MEDS ORDERED: MEROPENEM 500 MG in IV NORMAL SALINE 50 ML IV ONE (22:30)
--- NOTE | 2021-07-01 22:30 | NUR ---
dr lundy is calaled about planned dialysis , patient has no consistent blood pressure , already on 2 max pressors of levophed and neosynephrine , dialysis nurse [facility] to get the missing part equipment of duialysis machine an hour ago , ordered solcortef and vasopressin , amiodarone is dc'd per protocol order , as reported received from day shift at 22 30 pm
[2021-07-01] MEDS ORDERED: VASOPRESSIN 20 UNIT/ML VIAL ONE (22:52)
--- NOTE | 2021-07-01 23:00 | NUR ---
vasopressin is started
--- NOTE | 2021-07-01 23:02 | NUR ---
dialysis nurse is back and made aware of cancelled order dialysis for tonight , no blood pressure
--- NOTE | 2021-07-02 00:30 | NUR ---
unable to get blood pressure despite manual or automatic , changing of blood pressure cuffs , patient is already on maximum of three different pressors of vasopressin , levophed , and neosynephrine , current heart rate of 113 , oxygen saturation on current setting 80 %
[2021-07-02] MEDS ORDERED: MEROPENEM 500MG/NS 50ML PB ***ER PYXIS ONLY IV ONE (00:43)
[2021-07-02] MEDS ORDERED: NOREPINEPHRINE BITARTRATE 4 MG/4 ML VIAL IV ONE (00:47)
[2021-07-02] MEDS: NOREPINEPHRINE BITARTRATE 8 MG in IV NORMAL SALINE 242 ML IV PRN (00:56)
[2021-07-02] MEDS: PHENYLEPHRINE IV 50 MG in IV NORMAL SALINE 245 ML IV PRN ×2 (01:04→02:02)
[2021-07-02] MEDS ORDERED: PHENYLEPHRINE 10 MG/1 ML VIAL ONE (02:09)
[2021-07-02 02:15] VITALS: BP 44/18
--- NOTE | 2021-07-02 02:30 | NUR ---
shaw is called # [id number]
--- NOTE | 2021-07-02 02:30 | NUR ---
sister mehnaz is called notified of passing and explained process of releasing the body , phone number [phone]
--- NOTE | 2021-07-02 03:00 | NUR ---
doctor notified of passing
--- NOTE | 2021-07-02 04:51 | NUR ---
[facility] , [facility] sent with the body , 1 cell phone , 2 glasses , proj mgr
[2021-07-02] MEDS ORDERED: MEROPENEM 500 MG in IV NORMAL SALINE 50 ML IV SCH (09:00)
[2021-07-02] MEDS ORDERED: QUETIAPINE FUMARATE 25 MG TABLET PO SCH (13:00)
== END 2021-07-02 02:15 | DRG 871 ==
LOC: ER 22:10 → CCU 06-26 02:00
PROVIDERS: ADMIT Internal Medicine; ATTEND Internal Medicine
PROC: 5A09357 Assistance with Respiratory Ventilation, Less than 24 Consecutive Hours, Continuous Positive Airway Pressure (ICD-10-PCS; principal; 2021-06-26)
PROC: 5A1D70Z Performance of Urinary Filtration, Intermittent, Less than 6 Hours Per Day (ICD-10-PCS; 2021-06-27)
PROC: 5A09457 Assistance with Respiratory Ventilation, 24-96 Consecutive Hours, Continuous Positive Airway Pressure (ICD-10-PCS; 2021-06-27)
PROC: 30233N1 Transfusion of Nonautologous Red Blood Cells into Peripheral Vein, Percutaneous Approach (ICD-10-PCS; 2021-06-30)
PROC: 5A1935Z Respiratory Ventilation, Less than 24 Consecutive Hours (ICD-10-PCS; 2021-07-01)
PROC: 0BH18EZ Insertion of Endotracheal Airway into Trachea, Via Natural or Artificial Opening Endoscopic (ICD-10-PCS; 2021-07-01)
PROC: 5A12012 Performance of Cardiac Output, Single, Manual (ICD-10-PCS; 2021-07-02)
DX: A41.89 Other specified sepsis (principal); U07.1 COVID-19; J12.82 Pneumonia due to coronavirus disease 2019; J96.01 Acute respiratory failure with hypoxia; R65.21 Severe sepsis with septic shock; N18.6 End stage renal disease; I21.A1 Myocardial infarction type 2; G92.8 Other toxic encephalopathy; I12.0 Hypertensive chronic kidney disease with stage 5 chronic kidney disease or end stage renal disease; E44.0 Moderate protein-calorie malnutrition; D61.818 Other pancytopenia; D68.59 Other primary thrombophilia; D84.9 Immunodeficiency, unspecified; J98.11 Atelectasis; C90.00 Multiple myeloma not having achieved remission; N39.0 Urinary tract infection, site not specified; Z66 Do not resuscitate; Z99.2 Dependence on renal dialysis; E03.9 Hypothyroidism, unspecified; E78.5 Hyperlipidemia, unspecified; Z88.0 Allergy status to penicillin; Z96.653 Presence of artificial knee joint, bilateral; I48.0 Paroxysmal atrial fibrillation; E87.5 Hyperkalemia; E83.51 Hypocalcemia; G89.29 Other chronic pain; Z90.49 Acquired absence of other specified parts of digestive tract; K21.9 Gastro-esophageal reflux disease without esophagitis; G62.9 Polyneuropathy, unspecified; Z79.890 Hormone replacement therapy; Z79.899 Other long term (current) drug therapy; B96.4 Proteus (mirabilis) (morganii) as the cause of diseases classified elsewhere; B95.2 Enterococcus as the cause of diseases classified elsewhere
CPT/HCPCS: 36415; 36569; 36600; 51702; 70030-TC; 71045; 82747; 82784; 83550; 83605; 83615; 83735; 83970; 84100; 84155; 84165; 84443; 84550; 85014; 85018; 85025; 85610; 85730; 86038; 86140; 86334; 86430; 86706; 86708; 86709; 86803; 86850; 86900; 86901; 86920; 87040; 87070; 87077; 87086; 87340; 87350; 93005; 93307; 94002; 94660; A4663; A9150; G0378; J0282; J0696; J1100; J1170; J1200; J1442; J1644; J1940; J1956; J2185; J2370; J2405; J3370; J3475; J3490; J7030; J7050; J7060; P9016